=== PATIENT | female | born 1985 | race American Indian/Alaskan Native ===

== ENCOUNTER 2018-01-07 14:56 | Emergency (ER) | payer BC ==
[2018-01-07 14:56] VITALS: BMI 27.4
[2018-01-07] MEDS ORDERED: Sodium Chloride 0.9% 1,000 ML IV STA (15:59)
[2018-01-07] MEDS ORDERED: Iohexol 350 MG/100 ML VIAL ONE (16:07)
[2018-01-07] MEDS ORDERED: Iohexol 240 (50 ml) ONE (16:07)
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
[2018-01-07 16:55] LABS: PH,URINE 8.5 (4.7-8.0); URINE BILIRUBIN NEGATIVE (NEGATIVE); URINE BLOOD NEGATIVE (NEGATIVE); URINE GLUCOSE (UA) NEGATIVE (NEGATIVE); URINE LEUKOCYTE ESTERASE NEGATIVE Leu/uL (NEGATIVE); URINE PROTEIN NEGATIVE mg/dL (<30 mg/dL); URINE UROBILINOGEN 0.2 E.U./dL (<1 E.U./dL)
[2018-01-07 16:56] LABS: BASO # 0.04 K/mm3 (0.0-2.0); BASO % 0.7 % (0.0-3.0); EOS # 0.1 (0.0-0.7); EOS % 1.5 % (1.5-5.0); GRAN # 2.86 (1.4-6.5); GRAN % 46.5 % (50.0-68.0); HEMOGLOBIN 10.3 g/dL (12.0-16.0); LYMPH # 2.8 (1.2-3.4); LYMPH % 45.3 % (22.0-35.0); MEAN CELL VOLUME 76.7 fl (80.0-105.0); MEAN CORPUSCULAR HEMOGLOBIN 24.3 pg (25.0-35.0); MEAN CORPUSCULAR HGB CONC 31.7 g/dl (31.0-37.0); MEAN PLATELET VOLUME 9.3 fl (7.0-11.0); MONO # 0.4 (0.1-0.6); RBC 4.24 10^6/uL (3.5-6.1); RED CELL DISTRIBUTION WIDTH 17.1 % (11.5-14.5); WHITE BLOOD COUNT 6.1 10^3/ul (4.5-11.0)
[2018-01-07 16:57] LABS: URINE APPEARANCE SLIGHT-CLOUDY (CLEAR); URINE COLOR YELLOW (YELLOW)
[2018-01-07 17:00] LABS: ALB/GLOB RATIO 1.3 (1.1-1.8); ALBUMIN 3.8 g/dL (3.0-4.8); ALT/SGPT 26 U/L (7-56); AST/SGOT 20 U/L (14-36); BLOOD UREA NITROGEN 7 mg/dL (7-21); CALCIUM 8.8 mg/dL (8.4-10.5); GFR AFRICAN-AMERICAN > 60; GFR NON-AFRICAN AMERICAN > 60; LIPASE 46 U/L (23-300)
[2018-01-07 20:20] VITALS: BP 113/73; PULSE 58; RESP 17; TEMP 97.9; O2SAT 98
--- NOTE | 2018-01-08 10:21 | CT ---
PROCEDURE: CT abdomen and pelvis with and without intravenous contrast HISTORY: RLQ abdominal pain r/o appy COMPARISON: None. TECHNIQUE: Axial images of the abdomen were following intravenous injection of approximately 100 cc Omnipaque 350 contrast material. Additional 2D sagittal and coronal reformats were generated. This CT exam was performed using one or more of the following dose reduction techniques: Automated exposure control, adjustment of the mA and/or kV according to patient size, and/or use of iterative reconstruction technique. Radiation dose: Total exam DLP = 602.73 mGy-cm. FINDINGS: LOWER THORAX: Heart size within range of normal. Tiny hiatal hernia. LIVER: Mild intrahepatic biliary ductal dilatation. . Liver exhibits normal size. No evidence of hepatic masses or collections. GALLBLADDER AND BILE DUCTS: Gallbladder physiologically distended. No evidence of intraluminal gallbladder calculi. PANCREAS: Unremarkable. No gross lesion or ductal dilatation. SPLEEN: Unremarkable. ADRENALS: Unremarkable. No mass. KIDNEYS AND URETERS: Unremarkable. No hydronephrosis. No solid mass. VASCULATURE: Unremarkable. No aortic aneurysm. BOWEL: Unremarkable. No obstruction. No gross mural thickening. APPENDIX: Normal appearing appendix best seen on axial image number [id number] and all coronal sequence image number [id number] PERITONEUM: No free air. There is a small amount of free fluid seen in the cul de sac. Small fat containing umbilical hernia. LYMPH NODES: Unremarkable. No enlarged lymph nodes. BLADDER: Unremarkable. REPRODUCTIVE: Prominent. BONES: No acute fracture. OTHER FINDINGS: None. IMPRESSION: Mild intrahepatic biliary ductal dilatation. Small amount of free fluid seen in the cul de sac. Prominent endometrial canal. Recommend followup pelvic ultrasound. . No evidence of acute appendicitis. This report was placed in PA review folder for followup
== END 2018-01-07 20:20 | disposition home or self-care (01) ==
LOC: ED 14:56
DX: R10.9 Unspecified abdominal pain (principal)
CPT/HCPCS: 74177; 80053; 81003; 83690; 83735; 85025; 87491; 87591; 96374; 99284; J7030; Q9966; Q9967

== ENCOUNTER 2018-01-25 07:11 | Day surgery (SDC) | payer BC ==
[2018-01-18 13:53] VITALS: BMI 22.6
[2018-01-25] MEDS ORDERED: Sodium Chloride 0.9% 1,000 ML IV SCH (07:45)
[2018-01-25 08:26] LABS: BASO # 0.03 K/mm3 (0.0-2.0); BASO % 0.5 % (0.0-3.0); EOS # 0.1 (0.0-0.7); EOS % 1.4 % (1.5-5.0); GRAN # 2.39 (1.4-6.5); GRAN % 41.8 % (50.0-68.0); LYMPH # 2.8 (1.2-3.4); LYMPH % 49.7 % (22.0-35.0); MEAN CELL VOLUME 76.9 fl (80.0-105.0); MEAN CORPUSCULAR HEMOGLOBIN 24.3 pg (25.0-35.0); MEAN CORPUSCULAR HGB CONC 31.5 g/dl (31.0-37.0); MEAN PLATELET VOLUME 10.2 fl (7.0-11.0); MONO # 0.4 (0.1-0.6); MONO % 6.6 % (1.0-6.0); RBC 4.12 10^6/uL (3.5-6.1); RED CELL DISTRIBUTION WIDTH 16.7 % (11.5-14.5); WHITE BLOOD COUNT 5.7 10^3/ul (4.5-11.0)
[2018-01-25] MEDS ORDERED: Propofol 10 mg/ml 1,000 MG/100 ML VIAL ONE (08:39)
[2018-01-25] MEDS ORDERED: Propofol 10 mg/ml Inj (20 ML) ONE ×2 (08:40→10:08)
[2018-01-25 08:42] LABS: INR 1.09 (0.93-1.08); PARTIAL THROMBOPLASTIN TIME 30.5 Seconds (25.1-36.5); PROTHROMBIN TIME 12.6 SECONDS (9.4-12.5)
[2018-01-25 08:48] LABS: ALB/GLOB RATIO 1.5 (1.1-1.8); ALBUMIN 4.2 g/dL (3.0-4.8); ALT/SGPT 14 U/L (7-56); AMYLASE 102 U/L (35-125); AST/SGOT 20 U/L (14-36); BLOOD UREA NITROGEN 12 mg/dL (7-21); CALCIUM 9.1 mg/dL (8.4-10.5); GAMMA GLUTAMYL TRANSPEPTIDASE 17 U/L (8-78); GFR AFRICAN-AMERICAN > 60; GFR NON-AFRICAN AMERICAN > 60; LIPASE 76 U/L (23-300)
[2018-01-25 10:11] VITALS: BP 114/66; PULSE 59; RESP 18; TEMP 97.8; O2SAT 100
== END 2018-01-25 10:40 | disposition home or self-care (01) ==
LOC: ENDO 07:11
PROVIDERS: ATTEND Internal Medicine Gastroenterology
DX: K25.9 Gastric ulcer, unspecified as acute or chronic, without hemorrhage or perforation (principal); K26.9 Duodenal ulcer, unspecified as acute or chronic, without hemorrhage or perforation; K29.50 Unspecified chronic gastritis without bleeding; B96.81 Helicobacter pylori [H. pylori] as the cause of diseases classified elsewhere; K31.9 Disease of stomach and duodenum, unspecified; D64.9 Anemia, unspecified; R10.13 Epigastric pain
CPT/HCPCS: 36415; 43239; 80053; 82150; 82977; 83690; 84703; 85025; 85610; 85730; 88305; 88342; J2001; J2704 ×2; J3010; J7030; J7040

== ENCOUNTER 2018-03-29 09:35 | Observation (INO) | payer BC, OTHER ==
--- NOTE | 2018-03-29 10:00 | ED PDOC ---
Arrival/HPI - General Chief Complaint: Lower Extremity Problem/Injury Time Seen by Provider: 03/29/18 09:38 Historian: Patient - History of Present Illness Narrative History of Present Illness (Text): 03/29/18 09:57 33-year-old female presents today sent in by primary care physician for DVT in the left leg. Patient states she was seeing her GI specialist when he noticed that she had her leg wrapped up. She states she's been having pain since a recent travel to [place] via car on . Patient complaining of cramping sensation in the left calf. Patient denies chest pain or shortness of breath denies numbness weakness or tingling in the extremities. pt denies fever/ chills. denies trauma or injury. pt states she had US of left leg which showed DVT. No other complaints. Past Medical History - Provider Review Nursing Documentation Reviewed: Yes - Travel History Have you recently traveled outside [place] w/in the past 3 mons?: No - Infectious Disease Hx of Infectious Diseases: None - Tetanus Immunization Tetanus Immunization: Unknown - Reproductive Menopause: No - Past Medical History Past Medical History: No Previous - Cardiac Hx Pacemaker: No - Pulmonary Hx Respiratory Disorders: No - Neurological Hx Paralysis: No - HEENT Hx HEENT Disorder: No - Renal Hx Renal Disorder: No - Endocrine/Metabolic Hx Endocrine Disorders: No - Hematological/Oncological Hx Blood Transfusions: No - Integumentary Hx Dermatological Disorder: No - Musculoskeletal/Rheumatological Hx Musculoskeletal Disorders: No - Gastrointestinal Hx Gastrointestinal Disorders: No - Genitourinary/Gynecological Hx Genitourinary Disorders: No - Psychiatric Hx Emotional Abuse: No Hx Physical Abuse: No Hx Substance Use: No - Surgical History Other/Comment: left hand second, third, and fourth digits; skin graft L hand - Anesthesia Hx Anesthesia Reactions: No Hx Malignant Hyperthermia: No - Suicidal Assessment Feels Threatened In Home Enviroment: No Family/Social History - Physician Review Nursing Documentation Reviewed: Yes Family/Social History: Unknown Family HX Smoking Status: Light Smoker < 10 Cigarettes Daily Hx Alcohol Use: Yes (SOCIALLY) Hx Substance Use: No Hx Substance Use Treatment: No Allergies/Home Meds Allergies/Adverse Reactions: Allergies No Known Allergies Allergy (Verified 12/20/14 19:31) Home Medications: Home Meds Medication Instructions Recorded Confirmed Pantoprazole Sodium [Protonix] 40 mg PO DAILY 01/25/18 03/29/18 Review of Systems - Review of Systems Constitutional: absent: Fatigue, Fevers Respiratory: absent: SOB, Cough Cardiovascular: absent: Chest Pain, Palpitations Gastrointestinal: absent: Abdominal Pain, Nausea, Vomiting Genitourinary Female: absent: Dysuria, Frequency, Hematuria Musculoskeletal: Arthralgias. absent: Back Pain, Neck Pain Skin: absent: Rash, Pruritis Neurological: absent: Headache, Dizziness Psychiatric: absent: Anxiety, Depression Physical Exam Vital Signs Reviewed: Yes Vital Signs Temp Pulse Resp BP Pulse Ox 03/29/18 16:50 98.6 F 80 16 115/30 L 98 03/29/18 15:55 98.2 F 57 L 127/79 100 03/29/18 13:41 98 F 55 L 18 102/64 100 03/29/18 11:05 59 L 16 113/78 100 03/29/18 09:36 98.1 F 58 L 18 128/76 100 Temperature: Afebrile Blood Pressure: Normal Pulse: Regular Respiratory Rate: Normal Appearance: Positive for: Well-Appearing, Non-Toxic, Comfortable Pain Distress: None Mental Status: Positive for: Alert and Oriented X 3 - Systems Exam Head: Present: Atraumatic Mouth: Present: Moist Mucous Membranes Neck: Present: Normal Range of Motion Respiratory/Chest: Present: Clear to Auscultation, Good Air Exchange. No: Respiratory Distress, Accessory Muscle Use Cardiovascular: Present: Regular Rate and Rhythm, Normal S1, S2. No: Murmurs Rectal: Present: Normal Rectal Tone. No: Occult Blood, Rectal Tenderness, Gross Blood, Hemorrhoids Lower Extremity: Present: Edema (+ minimal edema noted to left calf; + tenderness. sensation and distal pulses intact. ) Neurological: Present: GCS=15, Speech Normal Skin: Present: Warm, Dry, Normal Color. No: Rashes Psychiatric: Present: Alert, Oriented x 3 Medical Decision Making ED Course and Treatment: 03/29/18 09:59 33yr old female with DVT in left leg. cbc; wnl cmp; wnl PT 12.7 INR 1.10 PTT 27.6 03/29/18 11:57 case was discussed with dr. carty; advised him of HGB of 9.7. with hx of ulcers diagnosed 2 months ago. advised observational status with GI consult. will consult dr. junior. pt given protonix and started on heparin drip. all aspects of this case were discussed the attending of record. impression; DVT observation admission to med/surg - Lab Interpretations Lab Results: 03/29/18 09:54 03/29/18 09:54 Lab Results 03/29/18 09:54: WBC 6.2, RBC 4.27, Hgb 9.7 L, Hct 31.9 L, MCV 74.7 L, MCH 22.7 L , MCHC 30.4 L, RDW 16.3 H, Plt Count 301, MPV 10.1, Gran % 65.0, Lymph % (Auto) 27.6, [place] % (Auto) 6.6 H, Eos % (Auto) 0.5 L, Baso % (Auto) 0.3, Gran # 4.03, Lymph # (Auto) 1.7, [place] # (Auto) 0.4, Eos # (Auto) 0.0, Baso # (Auto) 0.02 03/29/18 09:54: Sodium 140, Potassium 3.8, Chloride 106, Carbon Dioxide 24, Anion Gap 13, BUN 11, Creatinine 0.6 L, Est GFR ( Amer) > 60, Est GFR ( Non-Af Amer) > 60, Random Glucose 94, Calcium 9.6, Total Bilirubin 0.7, AST 30, ALT 23, Alkaline Phosphatase 74, Total Protein 7.8, Albumin 4.6, Globulin 3.2, Albumin/Globulin Ratio 1.5 03/29/18 09:54: PT 12.7 H, INR 1.10, APTT 27.6 - RAD Interpretation Radiology Orders: 03/29/18 10:28 ANGIO CHEST PE PROTOCOL [CT] Stat - Medication Orders Current Medication Orders: Heparin Sodium/Sodium Chloride (Heparin 51333 Units/250ml 1/2 Normal Saline) 25 ,000 units in 250 mls @ 10 mls/hr IV .Q24H PURNIMA; 1,000 UNITS/HR PRN Reason: Protocol Last Admin: 03/29/18 15:50 Dose: 10 mls/hr eMAR Start Stop Document 03/29/18 15:50 CIVIL ENGINEERING PROFESSOR (Rec: 03/29/18 15:51 CIVIL ENGINEERING PROFESSOR [facility] [id number][place] Intravenous Solution Start Date 03/29/18 Start Time 15:51 MAR aPTT Document 03/29/18 15:50 CIVIL ENGINEERING PROFESSOR (Rec: 03/29/18 15:51 CIVIL ENGINEERING PROFESSOR [facility] [id number][place] aPTT aPTT (secs) 27.6 Pantoprazole Sodium (Protonix Inj) 40 mg IVP DAILY PURNIMA Discontinued Medications Acetaminophen (Tylenol 325mg Tab) 650 mg PO STAT STA Stop: 03/29/18 10:18 Last Admin: 03/29/18 10:29 Dose: 650 mg [facility] Pain/Vitals Document 03/29/18 10:29 CIVIL ENGINEERING PROFESSOR (Rec: 03/29/18 10:30 CIVIL ENGINEERING PROFESSOR [facility] [id number][place] Pain Reassessment Is This A Pain ReAssessment? Yes Sleep Is patient sleeping during reassessment? No Presence of Pain Presence of Pain Yes Pain Scale Used Pain Scale Used Numeric Location Left, Right or Bilateral Left Pain Location Body Site leg Description Intermittent Intensity 10 Scale Used Numeric Pain Behavior Restlessness Facial Grimacing Re-Assess: [facility] Pain/Vitals Document 03/29/18 11:29 CIVIL ENGINEERING PROFESSOR (Rec: 03/29/18 15:30 CIVIL ENGINEERING PROFESSOR [facility] [id number][place] Pain Reassessment Is This A Pain ReAssessment? Yes Sleep Is patient sleeping during reassessment? No Presence of Pain Presence of Pain No Pain Scale Used Pain Scale Used Numeric Heparin Sodium (Porcine) (Heparin) 5,000 units 80 units/kg (5000 units) IV ONCE ONE PRN Reason: Protocol Stop: 03/29/18 15:13 Last Admin: 03/29/18 15:49 Dose: 5,000 units eMAR Start Stop Document 03/29/18 15:49 CIVIL ENGINEERING PROFESSOR (Rec: 03/29/18 15:49 CIVIL ENGINEERING PROFESSOR [facility] [id number][place] Intravenous Solution Start Date 03/29/18 Start Time 15:49 [facility] aPTT Document 03/29/18 15:49 CIVIL ENGINEERING PROFESSOR (Rec: 03/29/18 15:49 CIVIL ENGINEERING PROFESSOR [facility] [id number][place] aPTT aPTT (secs) 27.6 Pantoprazole Sodium (Protonix Inj) 40 mg IVP STAT STA Stop: 03/29/18 15:07 Last Admin: 03/29/18 15:49 Dose: 40 mg IVP Administration Document 03/29/18 15:49 CIVIL ENGINEERING PROFESSOR (Rec: 03/29/18 15:49 CIVIL ENGINEERING PROFESSOR [facility] [id number][place] Charges for Administration # of IVP Administrations 1 Disposition/Present on Arrival - Present on Arrival Any Indicators Present on Arrival: No History of DVT/PE: No History of Uncontrolled Diabetes: No Urinary Catheter: No History of Decub. Ulcer: No History Surgical Site Infection Following: None - Disposition Have Diagnosis and Disposition been Completed?: Yes Diagnosis: DVT (deep venous thrombosis) Disposition: HOSPITALIZED Disposition Time: 14:00 Patient Plan: Discharge Patient Problems: Current Active Problems Problem Status Onset DVT (deep venous thrombosis) Acute Condition: GOOD
[2018-03-29 10:32] LABS: BASO # 0.02 K/mm3 (0.0-2.0); BASO % 0.3 % (0.0-3.0); EOS % 0.5 % (1.5-5.0); GRAN # 4.03 (1.4-6.5); HEMOGLOBIN 9.7 g/dL (12.0-16.0); LYMPH # 1.7 (1.2-3.4); LYMPH % 27.6 % (22.0-35.0); MEAN CELL VOLUME 74.7 fl (80.0-105.0); MEAN CORPUSCULAR HEMOGLOBIN 22.7 pg (25.0-35.0); MEAN CORPUSCULAR HGB CONC 30.4 g/dl (31.0-37.0); MEAN PLATELET VOLUME 10.1 fl (7.0-11.0); MONO # 0.4 (0.1-0.6); MONO % 6.6 % (1.0-6.0); RBC 4.27 10^6/uL (3.5-6.1); RED CELL DISTRIBUTION WIDTH 16.3 % (11.5-14.5); WHITE BLOOD COUNT 6.2 10^3/ul (4.5-11.0)
[2018-03-29 10:38] LABS: INR 1.1; PARTIAL THROMBOPLASTIN TIME 27.6 Seconds (25.1-36.5); PROTHROMBIN TIME 12.7 SECONDS (9.4-12.5)
[2018-03-29 10:40] LABS: ALB/GLOB RATIO 1.5 (1.1-1.8); ALBUMIN 4.6 g/dL (3.0-4.8); ALT/SGPT 23 U/L (7-56); AST/SGOT 30 U/L (14-36); BLOOD UREA NITROGEN 11 mg/dL (7-21); CALCIUM 9.6 mg/dL (8.4-10.5); GFR NON-AFRICAN AMERICAN > 60
--- NOTE | 2018-03-29 13:41 | CT ---
Date of service: 03/29/2018 PROCEDURE: CT Chest with contrast (Pulmonary Angiogram) HISTORY: dvt r/o pe COMPARISON: None available. TECHNIQUE: Axial computed tomography images were obtained of the chest in the pulmonary arterial phase of enhancement. Coronal and sagittal reformatted images were created and reviewed. Intravenous contrast dose: Radiation dose: Total exam DLP = 267 mGy-cm. This CT exam was performed using one or more of the following dose reduction techniques: Automated exposure control, adjustment of the mA and/or kV according to patient size, and/or use of iterative reconstruction technique. FINDINGS: PULMONARY ARTERIES: Unremarkable. No pulmonary embolism. AORTA: No acute findings. No thoracic aortic aneurysm. LUNGS: Unremarkable. No nodule, mass or pulmonary consolidation. PLEURAL SPACES: Unremarkable. No effusion or pneumothorax. HEART: Unremarkable. No cardiomegaly. No significant pericardial effusion. LYMPH NODES: No lymphadenopathy. BONES, CHEST WALL: Unremarkable. No fracture or destructive lesion OTHER FINDINGS: Unremarkable. IMPRESSION: Unremarkable CT pulmonary angiogram. No pulmonary embolus.
[2018-03-29] MEDS ORDERED: Heparin25000 units/250ml 1/2NS 25,000 UNITS/250 ML BAG IV SCH (15:15)
[2018-03-29 22:09] VITALS: BMI 22.2
[2018-03-29] MEDS ORDERED: Pneumococcal 23-Valent Vaccine IM ONE (22:09)
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
[2018-03-30 07:42] LABS: HEMOGLOBIN 9.2 g/dL (12.0-16.0); MEAN CELL VOLUME 74.5 fl (80.0-105.0); MEAN CORPUSCULAR HEMOGLOBIN 22.5 pg (25.0-35.0); MEAN CORPUSCULAR HGB CONC 30.3 g/dl (31.0-37.0); RBC 4.08 10^6/uL (3.5-6.1); RED CELL DISTRIBUTION WIDTH 16.2 % (11.5-14.5); WHITE BLOOD COUNT 6.3 10^3/ul (4.5-11.0)
[2018-03-30 07:47] VITALS: BP 98/61; PULSE 60; RESP 20; TEMP 98.4; O2SAT 100
[2018-03-30 07:48] LABS: IRON 15 ug/dL (45-180)
[2018-03-30 07:58] LABS: % IRON SATURATION 4 % (20-55); ALB/GLOB RATIO 1.5 (1.1-1.8); ALT/SGPT 17 U/L (7-56); AST/SGOT 20 U/L (14-36); BLOOD UREA NITROGEN 8 mg/dL (7-21); CALCIUM 8.9 mg/dL (8.4-10.5); GFR NON-AFRICAN AMERICAN > 60; TOTAL IRON BINDING CAPACITY 393 ug/dL (265-497)
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
[2018-03-30 12:28] LABS: FERRITIN 5.6 ng/mL
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
[2018-03-30] MEDS ORDERED: Iron Sucrose 100 mg/5 ml Inj IVP ONE (13:06)
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
[2018-03-31] MEDS ORDERED: Pantoprazole 40 mg EC Tab PO SCH (07:30)
== END 2018-03-30 15:46 | disposition home or self-care (01) ==
LOC: ED 09:35 → ERH 15:05 → 5RSO 17:02
PROVIDERS: ADMIT Family Medicine; ATTEND Family Medicine
DX: I82.4Z2 Acute embolism and thrombosis of unspecified deep veins of left distal lower extremity (principal); K25.9 Gastric ulcer, unspecified as acute or chronic, without hemorrhage or perforation; K26.9 Duodenal ulcer, unspecified as acute or chronic, without hemorrhage or perforation; B96.81 Helicobacter pylori [H. pylori] as the cause of diseases classified elsewhere; D50.9 Iron deficiency anemia, unspecified; F17.210 Nicotine dependence, cigarettes, uncomplicated; K21.9 Gastro-esophageal reflux disease without esophagitis; Z80.3 Family history of malignant neoplasm of breast; Z79.01 Long term (current) use of anticoagulants
CPT/HCPCS: 36415; 71275; 80053; 82728; 83540; 83550; 85025; 85027; 85610; 85730; 96374; 99285; C9113; G0378; J1644; J1756

== ENCOUNTER 2018-04-10 08:03 | Emergency (ER) | payer OTHER, BC ==
[2018-04-10 08:04] VITALS: BMI 22.2
[2018-04-10 08:15] VITALS: TEMP 97.6; O2SAT 100
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
[2018-04-10 09:09] LABS: BASO # 0.02 K/mm3 (0.0-2.0); BASO % 0.4 % (0.0-3.0); EOS # 0.1 (0.0-0.7); EOS % 1.2 % (1.5-5.0); GRAN # 2.89 (1.4-6.5); GRAN % 58.6 % (50.0-68.0); HEMOGLOBIN 10.5 g/dL (12.0-16.0); LYMPH # 1.6 (1.2-3.4); LYMPH % 33.3 % (22.0-35.0); MEAN CELL VOLUME 76.1 fl (80.0-105.0); MEAN CORPUSCULAR HGB CONC 30.3 g/dl (31.0-37.0); MEAN PLATELET VOLUME 9.7 fl (7.0-11.0); MONO # 0.3 (0.1-0.6); MONO % 6.5 % (1.0-6.0); RBC 4.56 10^6/uL (3.5-6.1); WHITE BLOOD COUNT 4.9 10^3/ul (4.5-11.0)
[2018-04-10 09:19] LABS: BLOOD UREA NITROGEN 9 mg/dL (7-21); CALCIUM 9.2 mg/dL (8.4-10.5); GFR NON-AFRICAN AMERICAN > 60
--- NOTE | 2018-04-10 09:33 | CT ---
Date of service: 04/10/2018 PROCEDURE: CT HEAD WITHOUT CONTRAST. HISTORY: trauma COMPARISON: None available. TECHNIQUE: Axial computed tomography images were obtained through the head/brain without intravenous contrast. Radiation dose: Total exam DLP = 750.94 mGy-cm. This CT exam was performed using one or more of the following dose reduction techniques: Automated exposure control, adjustment of the mA and/or kV according to patient size, and/or use of iterative reconstruction technique. FINDINGS: HEMORRHAGE: No intracranial hemorrhage. BRAIN: No mass effect or edema. No atrophy or chronic microvascular ischemic changes. VENTRICLES: Unremarkable. No hydrocephalus. CALVARIUM: Unremarkable. PARANASAL SINUSES: Unremarkable as visualized. No significant inflammatory changes. MASTOID AIR CELLS: Unremarkable as visualized. No inflammatory changes. OTHER FINDINGS: None. IMPRESSION: Normal CT of the Head. No acute intracranial hemorrhage.
[2018-04-10 10:21] VITALS: BP 126/72; PULSE 62; RESP 18
== END 2018-04-10 10:42 | disposition home or self-care (01) ==
LOC: ED 08:03
DX: S09.90XA Unspecified injury of head, initial encounter (principal); V89.2XXA Person injured in unspecified motor-vehicle accident, traffic, initial encounter; Z86.718 Personal history of other venous thrombosis and embolism; Z79.01 Long term (current) use of anticoagulants

== ENCOUNTER 2018-04-11 09:46 | Emergency (ER) | payer BC, OTHER ==
[2018-04-11 09:47] VITALS: BMI 22.2
[2018-04-11 10:47] VITALS: TEMP 98.2; O2SAT 100
[2018-04-11] MEDS ORDERED: Sodium Chloride 0.9% 1,000 ML IV STA (10:57)
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
[2018-04-11 11:29] LABS: BASO # 0.02 K/mm3 (0.0-2.0); BASO % 0.4 % (0.0-3.0); EOS % 0.9 % (1.5-5.0); GRAN # 2.43 (1.4-6.5); GRAN % 54.1 % (50.0-68.0); HEMOGLOBIN 9.5 g/dL (12.0-16.0); LYMPH # 1.7 (1.2-3.4); LYMPH % 38.1 % (22.0-35.0); MEAN CORPUSCULAR HEMOGLOBIN 23.5 pg (25.0-35.0); MEAN CORPUSCULAR HGB CONC 30.9 g/dl (31.0-37.0); MEAN PLATELET VOLUME 9.6 fl (7.0-11.0); MONO # 0.3 (0.1-0.6); MONO % 6.5 % (1.0-6.0); RBC 4.04 10^6/uL (3.5-6.1); RED CELL DISTRIBUTION WIDTH 17.8 % (11.5-14.5); WHITE BLOOD COUNT 4.5 10^3/ul (4.5-11.0)
[2018-04-11 11:36] LABS: INR 2.12; PARTIAL THROMBOPLASTIN TIME 38.4 Seconds (25.1-36.5); PROTHROMBIN TIME 24.7 SECONDS (9.4-12.5)
[2018-04-11 11:38] LABS: ALB/GLOB RATIO 1.5 (1.1-1.8); ALBUMIN 4.2 g/dL (3.0-4.8); ALT/SGPT 18 U/L (7-56); AST/SGOT 22 U/L (14-36); BLOOD UREA NITROGEN 9 mg/dL (7-21); CALCIUM 9.3 mg/dL (8.4-10.5); GFR NON-AFRICAN AMERICAN > 60
[2018-04-11 12:23] VITALS: BP 125/78; PULSE 61; RESP 18
== END 2018-04-11 13:01 | disposition home or self-care (01) ==
LOC: ED 09:46
DX: N92.0 Excessive and frequent menstruation with regular cycle (principal)
CPT/HCPCS: 80053; 85025; 85610; 85730; 86850; 86900; 99283; J7030